=== PATIENT | female | born 2005 | race Caucasian/White ===

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

== ENCOUNTER 2025-03-02 10:48 | Inpatient (IN) | payer BC ==
[2025-03-02 11:06] VITALS: BMI 24.3
[2025-03-02] MEDS ORDERED: hydrALAZINE 20 MG/ML VIAL SLOW IVP PRN ×2 (13:08→22:05)
[2025-03-02] MEDS ORDERED: Ondansetron PF 4 MG/2 ML Vial IVP PRN ×3 (13:08→18:21)
[2025-03-02] MEDS ORDERED: Lidocaine 1% (PF) 30 ML VIAL SC PRN (13:08)
[2025-03-02] MEDS ORDERED: Ibuprofen 800 MG TAB PO PRN (13:08)
[2025-03-02] MEDS ORDERED: HYDROcodone/Acetaminophen 5/325 mg Tablet PO PRN ×2 (13:08)
[2025-03-02] MEDS ORDERED: Penicillin G 2.5 MILL.units 2.5 MILL.UNITS in Premix 1 BAG IVPB SCH (13:15)
[2025-03-02] MEDS ORDERED: Penicillin G Potassium 5 MILL.UNITS in Sodium Chloride 0.9% 100 ML IVPB SCH (13:15)
[2025-03-02] MEDS ORDERED: Oxytocin 30 units/NS 500 ML 500 ML IV SCH ×2 (13:15)
[2025-03-02 13:42] LABS: Fetal Membranes Rupture No Membranes Rupture (No Rupture)
[2025-03-02 13:46] LABS: Hematocrit 34.3 % (34.9-44.5); Hemoglobin 10.9 g/dL (12.0-15.5); Mean Corpuscular Hemoglobin 26.1 pg (27.0-33.0); Mean Corpuscular Volume 82.3 fL (81.6-98.3); Platelet Count 304 10x3/uL (150-450); Red Blood Cell (RBC) Count 4.17 10x6/uL (3.90-5.03); White Blood Cell (WBC) Count 9.84 10x3/uL (3.5-10.5)
[2025-03-02 14:25] LABS: ALT (SGPT) 11 U/L (Less than 34); AST (SGOT) 17 U/L (11-34); Albumin 3.2 g/dL (3.1-4.5); Alkaline Phosphatase 198 U/L (40-100); Anion Gap 14 mmol/L (10-20); BUN (Urea Nitrogen) 9 mg/dL (8.4-21.0); Bilirubin, Total 0.2 mg/dL (0.3-1.2); Calc. Creatinine Clearance 123 mL/min (70-130); Calcium 8.8 mg/dL (7.8-10.44); Carbon Dioxide 22 mmol/L (22-29); Chloride 105 mmol/L (98-107); Globulin 4.0 g/dL (2.4-3.5); Glucose 90 mg/dL (70-105); Potassium 3.8 mmol/L (3.5-5.1); Sodium 137 mmol/L (136-145)
[2025-03-02 14:39] LABS: Syphilis Antibody Index 0.07 S/CO (<1.00 Non-Reactive)
[2025-03-02 14:41] LABS: Hep B Surf Ag - L&D Non-Reactive S/CO (NonReactive)
[2025-03-02] MEDS ORDERED: Famotidine/PF 20 mg/2ml Vial SLOW IVP PRN (17:29)
[2025-03-02] MEDS ORDERED: Bicitra 30 ML UDCUP PO PRN (17:29)
[2025-03-02] MEDS ORDERED: Meperidine HCl/PF 25 MG (1 mL) VIAL SLOW IVP PRN (18:20)
[2025-03-02] MEDS ORDERED: diphenhydrAMINE 50 MG/ML VIAL IVP PRN (18:21)
[2025-03-02] MEDS ORDERED: Ketorolac Tromethamine 30 MG (1 mL) VIAL IVP SCH (18:30)
[2025-03-02] MEDS ORDERED: Lanolin Ointment 7 GM TUBE TOP PRN (22:05)
[2025-03-02] MEDS ORDERED: Bisacodyl 10 MG SUPP PR PRN (22:05)
[2025-03-02] MEDS ORDERED: Acetaminophen 325 MG TAB PO PRN (22:05)
[2025-03-02] MEDS ORDERED: diphenhydrAMINE 25 MG CAP PO PRN (22:05)
[2025-03-02] MEDS: Ketorolac Tromethamine 30 MG (1 mL) VIAL IVP PRN (22:30)
[2025-03-02] MEDS: Ondansetron PF 4 MG/2 ML Vial IVP PRN (23:18)
[2025-03-03] MEDS: Ferrous Sulfate 325 MG TAB PO SCH ×2 (04:07→09:29)
[2025-03-03] MEDS: Dexamethasone 10 MG/ML VIAL ONE (04:09)
[2025-03-03] MEDS: CEFAZOLIN 2 GM VIAL ONE (04:09)
[2025-03-03] MEDS: Erythromycin Base 0.5% Oint 1 GM TUBE ONE (04:09)
[2025-03-03] MEDS: PHENYLEPHRINE-NS 100 MCG/ML 10 ML SYRINGE ONE (04:09)
[2025-03-03] MEDS: Oxytocin 10 UNITS/ML VIAL ONE (04:09)
[2025-03-03] MEDS: Ondansetron PF 4 MG/2 ML Vial ONE (04:09)
[2025-03-03] MEDS: Azithromycin 500 MG VIAL ONE (04:10)
[2025-03-03] MEDS: Boostrix 0.5 ML (Tdap) VIAL (>/=7 yrs of age) IM ONE (05:07)
[2025-03-03 06:02] LABS: Hematocrit 27.0 % (34.9-44.5); Hemoglobin 8.8 g/dL (12.0-15.5); Mean Corpuscular Hemoglobin 26.7 pg (27.0-33.0); Mean Corpuscular Volume 82.1 fL (81.6-98.3); Platelet Count 283 10x3/uL (150-450); Red Blood Cell (RBC) Count 3.29 10x6/uL (3.90-5.03); White Blood Cell (WBC) Count 17.86 10x3/uL (3.5-10.5)
[2025-03-03] MEDS ORDERED: HYDROcodone/Acetaminophen 5/325 mg Tablet PO PRN (07:30)
[2025-03-03] MEDS: HYDROcodone/Acetaminophen 5/325 mg Tablet PO PRN (09:29)
[2025-03-03] MEDS: Ibuprofen 800 MG TAB PO SCH (22:21)
[2025-03-04] MEDS: Simethicone Chewable 80 MG TAB PO PRN (09:42)
[2025-03-05 08:24] VITALS: BP 120/73; TEMP 97.9
== END 2025-03-05 12:05 | disposition home or self-care (01) | DRG 788 ==
LOC: CSHLD/OP 10:48 → CSHLD 13:47 → CSHPED 21:00
PROVIDERS: ADMIT Obstetrics & Gynecology; ATTEND Obstetrics & Gynecology
PROC: 10D00Z1 Extraction of Products of Conception, Low, Open Approach (ICD-10-PCS; principal; 2025-03-02)
PROC: 3E03329 Introduction of Other Anti-infective into Peripheral Vein, Percutaneous Approach (ICD-10-PCS; 2025-03-02)
PROC: 30233S1 Transfusion of Nonautologous Globulin into Peripheral Vein, Percutaneous Approach (ICD-10-PCS; 2025-03-03)
DX: O42.913 Preterm premature rupture of membranes, unspecified as to length of time between rupture and onset of labor, third trimester (principal); O76 Abnormality in fetal heart rate and rhythm complicating labor and delivery; Z3A.36 36 weeks gestation of pregnancy; Z37.0 Single live birth; Z79.899 Other long term (current) drug therapy; O36.5930 Maternal care for other known or suspected poor fetal growth, third trimester, not applicable or unspecified
CPT/HCPCS: 36415; 51702; 80053; 84112; 85027; 85461; 86780; 86850; 86870; 86900; 86901; 87340; 88307; 90384; 96372; 99285; J1100; J1885; J2250; J2274; J2405; J2590